=== PATIENT | male | born 1940 | race Caucasian/White ===

== ENCOUNTER 2019-02-28 14:43 | Inpatient (IN) | payer OTHER ==
--- NOTE | ~2019-02-28 | D ---
[facility] [place] [address] DISCHARGE SUMMARY Name: LOULOU OLIVIA Room #: 528B-B [facility] IN M.R.#: [id number] Admission: 02/28/19 ������������������ Attend Phys: Chris Hernadez DO Discharge: 03/08/19 ������������������ Date of : 38 Report #: [id number] THIS REPORT FOR: //name// CC: GORDON Hernadez Physician staff DATE OF SERVICE: 03/08/2019 DISCHARGE DIAGNOSES: Major depressive disorder, single episode, severe degree, mild neurocognitive disorder. MEDICAL COMORBIDITIES: Hypertension, hyperlipidemia, coronary artery disease, status post CABG, bioprosthetic valve replacement ____, BPH, chronic back pain. DISCHARGE DIET: Mechanical altered, ground due to his dentition. DISCHARGE MEDICATIONS: Tamsulosin 0.8 mg p.o. daily, atorvastatin 10 mg p.o. daily, [place] 3 fatty acids, isosorbide mononitrate 30 mg p.o. daily, nitroglycerin sublingual 0.4 mg p.o. as directed, diltiazem 180 mg p.o. daily for hypertension, aspirin 81 mg p.o. daily, gabapentin 200 mg p.o. at 0800, 1400 and 2200 for mood stabilization and neuropathy, escitalopram 10 mg p.o. daily for depression, mirtazapine 30 mg p.o. at bedtime augmentation for depression. Seroquel 37.5 mg p.o. at 0900, 1400 and 1900 for anxiety, MiraLax 17 grams p.o. daily for constipation, levothyroxine 25 mcg p.o. daily, multivitamin p.o. daily. Discharge him to ____ [place], [place] for medical and psychiatric care to be gotten there. I would recommend him establishing ____ [facility]. REASON FOR ADMISSION: Was reported suicidal ideation. HOSPITAL COURSE: The patient was admitted to Geriatric Psychiatry Unit. Made a few adjustments with starting him on Lexapro, 20 units of Remeron would be more of an antidepressant dose, stared him on Seroquel, Valium and then Klonopin. The patient improved. He has a lot of chronic issues related to pain, social isolation, failure to follow through with physical therapies. During hospitalization, his etqxribd-vp-udm came to visit. She is his main family support. Benefits versus detriments of moving and [facility]ulsive [facility] were discussed. He wished to remain in [facility], which is about 2 hours outside [place] and an hour and a half from [place], [place]. Labs this admission was unknown. They were done at [facility] and grossly normal. EKG was done. No acute findings. [facility] [address] [place] [address] DISCHARGE SUMMARY Name: LOULOU OLIVIA Room #: 528B-B DIS IN M.R.#: [id number] Admission: 02/28/19 ������������������ Attend Phys: Chris Hernadez DO Discharge: 03/08/19 ������������������ Date of : 38 Report #: [id number] PHYSICAL EXAMINATION AT THE TIME OF DISCHARGE: VITAL SIGNS: Temperature 36.6, pulse 56, respirations 40, BP 143/69, O2 sat 98%. MUSCULOSKELETAL: Kyphotic, ambulates with walker, slow gait. MENTAL STATUS EXAMINATION: This is a well-developed, well-nourished male, appearing stated age. Mood and affect congruent and constricted. Attention and concentration are intact. Thought process is linear and goal directed. Thought content concerned about return to nursing facility. Denied SI or HI. Denied hopelessness or helplessness. Denied homicidal intent or plan. Memory not formally tested. Insight fair. Judgment is fair to limited. Fund of knowledge is below average. High school level of education. Prognosis for this patient is guarded. ��������������������������������������������� ���������������������������������������� By: ��������������������������������������������� [id number] Chris Hernadez, DO /nt
[2019-02-28 19:30] VITALS: BP 154/73
[2019-02-28] MEDS ORDERED: DUTASTERIDE0.5 MG PO (22:40)
[2019-02-28] MEDS ORDERED: FOLIC ACID1 MG PO (22:41)
--- NOTE | 2019-03-01 02:53 | NUR ---
ASSUMED CARE @ 19:30. DRESSED ONLY IN THE HOSPITAL PANTS HE CAME IN, PT REFUSED TO PUT ON CLEAN PANTS AND SHIRT.
[2019-03-01 03:17] VITALS: BP 154/73
[2019-03-01 03:49] VITALS: BP 154/73
--- NOTE | 2019-03-01 07:30 | NUR ---
PT UP WALKING AROUND IN PRICE. COMPLAINING OF FEET PAIN. PT STATED HE HAS ARTHRITIS IN HIS BACK OF 8 ON 1-10 SCALE. PT KNOWS PERSON AND MONTH. LUNGS CLEAR. STEADY GAIT. STATED HE WOULD LIKE TO GET SOME CLOTHES ALSO.
[2019-03-01 08:00] VITALS: BP 139/66
--- NOTE | 2019-03-01 08:10 | NUR ---
PT UP THIS AM STATED HE HAS PAIN TO HIS FEET AND THAT HE NEEDS HIS SHOES. GOT SHOES FROM [facility] AND PUT SPECIAL LACES ON. PT STATED HE HAS NEUROPATHY AND FIBROMYALGIA.
[2019-03-01 09:11] VITALS: BP 139/66
--- NOTE | 2019-03-01 10:30 | NUR ---
ADM TYLENOL 325MG 2 TABS PO FOR PAIN TO BACK AND LEGS.
[2019-03-01 12:25] VITALS: BP 139/66
--- NOTE | 2019-03-01 12:50 | NUR ---
PT STATED HE HAS A HEAD COLD TO NURSE. WILL LET AWARE.
--- NOTE | 2019-03-01 15:10 | NUR ---
DR. GARZA HERE TO SEE PT. TALKED TO ABOUT HIS CHRONIC PAIN. PT WAS IN AFTERNOOD GROUP AND UP WALKING IN PRICE WITH WALKER.
--- NOTE | 2019-03-01 16:13 | NUR ---
PT ASKING IF ORDERED ANY PAIN MED AT THIS TIME. NOTHING AT THIS TIME.
--- NOTE | 2019-03-01 17:07 | NUR ---
ADM TYLENOL 325MG 2 TABS FOR PAIN TO LEGS AND LOWER BACK. PT STATED IF HE DIDN'T GET ANYTHING STRONGER HE WAS GOING TO FROM THE PAIN.
[2019-03-01 20:31] VITALS: BP 127/61
--- NOTE | 2019-03-02 02:43 | NUR ---
PT OBSERVED IN DAYROOM SITTING QUIETLY WITH PEERS UPON INITAL ASSESSMENT THIS PM-DYSPHORIC MOOD-ABRUPT RESPONSES TO INQUIRIES FROM STAFF. USING ROLLER WALKER AND GAIT IS SLOW/STEADY WITH USE OF ASSISTIVE DEVICE. RESTLESS AT TIMES GETTING UP TO PACE IN HALLWAYS AND DID TRY EXIT DOOR AND STANDS OUTSIDE DOOR OF PEERS ROOMS UNTIL REDIRECTED-CONVERSATION DURING 1;1 INTERACTION WITH NURSING FOCUSES ON PAIN-STATING HE HAS BACK PAIN RATED A 10 ON 1-10 SCALE-NORCO5/325MG GIVEN AT 2030 FOR ABOVE REPORTED-PT STATES "I USUALLY TAKE 2" WHEN ADMINISTERED. DID COMPLETE HS CARES/CHANGE INTO PAJAMAS WITH VERBAL CUING FROM STAFF-DENIES SI/HI/SH THOUGHTS. DESCRIBES MOOD "TIRED/SORE" ORIENTED TO NAME,PLACE STATING HE IS AWARE IN HOSPITAL BUT UNABLE TO STATE NAME OF HOSPITAL. TO BED AT APPROX.2200-[facility].
--- NOTE | 2019-03-02 05:10 | NUR ---
AWAKE IN HALLWAY AT 0450-WHEN APPROACHED WAS NOTED TO BE TEARFUL-C/O BACK PAIN RATED A 9 ON 1-10 SCALE. NORCO5/325MG GIVEN PO PRN FOR REPORTED PAIN- THIS NURSE WAS WALKING HIM BACK TO ROOM TO RETURN TO BED HE BEGINS TO CRY STATING "I AM JUST READY TO GO HOME-I DON'T HAVE ANYONE,I'M ALL ALONE" WHEN ASKED IF HE WAS HAVING SUICIDAL THOUGHTS SHOOK HEAD NO AND STATES "I'M AFRAID TO GO HOME"
--- NOTE | 2019-03-02 09:32 | H ---
[facility] [place] [address] HISTORY AND PHYSICAL Name: LOULOU OLIVIA Room #: 528B-B ADM IN M.R.#: [id number] Admission: 02/28/19 ������������������ Attend Phys: Chris Hernadez DO Discharge: ������������������ Date of : 38 Report #: [id number] THIS REPORT FOR: //name// CC: GORDON TITO Hernadez Physician staff DATE OF SERVICE: 03/01/2019 INPATIENT PSYCHIATRIC EVALUATION ATTENDING PHYSICIAN: Chris Hernadez. . GOLD BLOWER: Matthew Harris M.D. REASON FOR HOSPITALIZATION: Severe depression, suicidal ideation and failure to cope and thrive. HISTORY OF PRESENT ILLNESS: This is an 78-year-old male who resides at the Assisted Living Facility near [place], [place]. The patient was referred by [facility] there, which is in the [facility] system. The patient has been having suicidal thoughts, grief, hopelessness, no friends, feels like a burden, no support. committed suicide after son's . Apparently, she wanted a divorce at that time. That has been within the last decade. The patient reports he has had 4 children, 2 of which were . The patient's two living daughters are Sarah Olivia and Pily Melendez at [phone] and [phone]. I do not think this is the patient's first psychiatric hospitalization, but I do not have a great history. The patient reported that he is feeling down. ALLERGIES: HE STATES HE HAS HAD TROUBLE TOLERATING PREVIOUS ANTIDEPRESSANTS, INCLUDING PAXIL AND WELLBUTRIN. HE HAS A NUMBER OF ALLERGIES THAT ARE NOTED, INCLUDING ALPRAZOLAM; CIPROFLOXACIN; PAROXETINE; SULFA; THAT MAY BE ZANAFLEX, NOT SURE. JUST NOTICED THERE IS AN ALLERGY FOR EFFEXOR THAT IS NOT LISTED. CYMBALTA, URINARY RETENTION AND ZITHROMAX. So, I do not think the patient is a great historian. FROM THE NURSING FACILITY, THERE IS AN ALLERGY FOR CIPROFLOXACIN, CYMBALTA, EFFEXOR, PAXIL, PENICILLINS, SULFA, XANAX AND ZITHROMAX. I think because of this, I switch him to Lexapro. MEDICATIONS: In any event, medications at the shelter: Aspirin 81 mg p.o. daily; diltiazem 180 mg ER; dutasteride 0.5 mg p.o. daily, that is Avodart; folic acid 1 mg p.o. daily; gabapentin 400 mg p.o. at bedtime; isosorbide mononitrate ER 30 mg daily; levothyroxine 25 mcg daily; mirtazapine 30 mg at bedtime; [place] 3 fatty acids 500-100 mg 1 cap daily; senna-S 1 tab p.o. b.i.d.; [address] [address] HISTORY AND PHYSICAL Name: LOULOU OLIVIA ANAND Room #: 528B-B ADM IN M.R.#: [id number] Admission: 02/28/19 ������������������ Attend Phys: Chris Hernadez DO Discharge: ������������������ Date of : 38 Report #: [id number] simvastatin 20 mg p.o. at bedtime; tamsulosin 0.8 mg p.o. daily; temazepam 30 mg at bedtime and therapeutic multivitamin. He was getting clonazepam 0.5 mg t.i.d. p.r.n.; hydrocodone 10/325 p.o. q.6 hours p.r.n., max of 3 per day for unspecified pain level; magnesium hydroxide p.r.n. for constipation; nitroglycerin p.r.n. and MiraLax powder b.i.d. in 8 ounces of water. LABORATORY DATA: Laboratories from [facility], drawn on 02/28/2019, CMP: Sodium slightly low at 132, potassium 4.3, chloride 99, bicarbonate 24, anion gap 9, calcium 9.1 and glucose 101. Total protein 6.9. Albumin 4.4. Alkaline phosphatase 75, alanine 21, AST 32 and total bilirubin 0.7. BUN 15, creatinine 0.9. Estimated GFR for male is 98 as -Filipino; uus-Hfjozdy-Rtwdqueu 81. Drug screening was positive for benzodiazepines and opiates. Urinalysis negative. CBC: H and H 12.6 and 36, white count 8.05 and platelets 363,000. LEGAL HISTORY: Denied. SOCIAL HISTORY: Denied physical, sexual or emotional abuse. Reports 8th grade level of education. 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 Affidavits include the first one saying, he is anxious, despondent, has suicidal ideations, has no hope, no family support, has continued to have nightmares. Current medications not helping. The patient otherwise unwilling to seek help. Second affidavit from [facility]; the first one was by Wali Velasquez II, M.D. services. The patient presented to the ED alone. The patient was very tearful and anxious, stated "I had nowhere else to go, nowhere to get help, so I came here. I just don't want to be around anymore". The patient does not have a plan, but has a long history of depression and mental illness. He also thought while he cannot work anymore, so he has no reason to live. The patient's shot herself 10+ years ago after son . The patient repeats that he just wants help because he wants to live, but he just cannot. They felt he was a threat to his own safety. PAST MEDICAL HISTORY: Includes arthropathy; BPH, chronic low back pain with sciatica and coronary artery disease. He states 14 years ago, he had a times 4-vessel CABG and a porcine valve replacement. Degenerative joint disease; hypertension; history of inferior wall [place]; hypothyroidism; hyperlipidemia; neuropathy; osteoarthrosis involving the lower leg; prostatitis, although not currently; nicotine dependence; tremor and a history of coronary artery bypass graft x 4 with porcine valve replacement and hernia repair. FAMILY HISTORY: Father, coronary artery disease. Father, heart attack. Liver cancer in his mother. Prostate cancer and colon cancer in a brother. HABITS: He has half-pack per day 60-year-old smoker. [address] [address] HISTORY AND PHYSICAL Name: LOULOU OLIVIA Room #: 528B-B [facility] IN ..#: [id number] Admission: 02/28/19 ������������������ Attend Phys: Chris Hernadez DO Discharge: ������������������ Date of : 38 Report #: [id number] REVIEW OF SYSTEMS FROM THE EMERGENCY ROOM: CONSTITUTIONAL: Negative for activity change, appetite change, chills or fever. HEENT: Negative for congestion or sore throat. RESPIRATORY: Negative for cough or shortness of breath. CARDIOVASCULAR: Negative for chest pain, leg swelling. GASTROINTESTINAL: Negative for abdominal pain, diarrhea, nausea or vomiting. GENITOURINARY: Negative for dysuria. MUSCULOSKELETAL: Negative for neck pain or neck stiffness. SKIN: Negative. PSYCHIATRIC: Positive for dysphoric mood and suicidal ideas. Negative for confusion and hallucinations. The patient is anxious. PHYSICAL EXAMINATION: VITAL SIGNS: Weight 81.6 kilos in the ER. BMI 28.19. Vital signs today as follows: Temperature 36.2, pulse 79, respirations 16, BP 139/66 and O2 sat 93%. MUSCULOSKELETAL EXAMINATION: He has a cautious kyphotic gait. MENTAL STATUS EXAMINATION: This is a well-developed, disheveled male, appearing older than stated age. Attention fair. Concentration fair. Speech is normal rate, volume and tone. Thought process linear, generally goal directed. Thought content, relative poverty of thought. No psychomotor agitation. No psychomotor retardation. Denied auditory, visual or tactile hallucinations. Suicidal ideations have been not active and does not have means currently. Obviously, he is in the hospital. Memory not formally tested, though he had deficits only, day of the week and date. FORMULATION: An 78-year-old male, being transferred from the [facility] due to depression fairly diffusely. PLAN: Evaluate, stabilize. Perform a cognitive screen. In light of his allergy list, I think I will switch him from Effexor to Lexapro. I will consider other medications as indicated. ESTIMATED LENGTH OF STAY: 10-14 days. STRENGTHS: He has some insurance. WEAKNESSES: Numerous symptoms of provocative suicidal risk factors. ��������������������������������������������� <ELECTRONICALLY SIGNED> ���������������������������������������� By: Chris Hernadez DO ��������������������������������������������� 03/02/19 0932 1239 [id number] Chris Hernadez DO /nt
--- NOTE | 2019-03-02 12:23 | NUR ---
ASSUMED CARE AT 0715 TODAY. PT. UP ON THE UNIT. CONTINUES TO VERBALIZE DEPRESSION AND HOPELESSNESS EVIDENCED BY HIS STATEMENTS: i JUST DONT FEEL LIKE THIS IS RIGHT. WHAT CAN I DO. I JUST DON'T THINK ANYONE CAN HELP ME ANYMORE. AFFECT FLAT, DEPRESSED FACIAL EXPRESSIONS. HAS ATE MEALS ON THE UNIT AND ATTENDED GROUPS. DRESSES WELL AND WANTS TO SHAVE TODAY TIME ALLOWS. DRESSED NEATLY. STATES BOWELS MOVED YESTERDAY.
[2019-03-02 12:28] VITALS: BP 128/65
[2019-03-02 21:13] VITALS: BP 129/60
--- NOTE | 2019-03-03 03:09 | NUR ---
ASSUMED CARE @ 19:15. AMBULATING FROM DAY ROOM TO BEDROOM. DRESSED IN JEANS AND WESTERN SHIRT. DENIES SI AND HI. SAYS FEELS WORN OUT. STATES, "IM NOT MAD AT NOBODY TODAY." STATES THAT IS EXPERIENCING SADNESS. C/O OF NOT BEING ABLE TO EAT MUCH AT LUNCH AND DINNER, DUE TO NO TEETH, AND NEEDING SOFT FOOD. A&OX3 HRRR, LUNGS DIMINISHED, ABDOMEN SOUNDS NORMOACTIVE. STATES THAT HERNEA ABOVE UMBILLICUS IS PAINFUL. [place] PROVIDED @ 0100 FOR BACK PAIN OF 6/10. WASHING CLOTHING SO HE CAN WEAR IT CLEAN TOMORROW. WILL CONTINUE TO MONITOR.
[2019-03-03 04:41] VITALS: BP 129/60
[2019-03-03 07:50] VITALS: BP 126/56
--- NOTE | 2019-03-03 11:04 | NUR ---
ASSUMED PATIENT CARE AT 0730. PATIENT ATE SMALL ABOUNT OF BREAKFAST, R/T NO TEETH. NURSE WILL GET A DIET CHANGE ORDER FROM N.P. PROCUREMENT ACCOUNTANT THIS WEEKEND. PATIENT VERY GROUCHY, C/O ABOUT EVERYTHING TO DO WITH BEHAVIORAL HEALTH. FIRST STATED TO THIS NURSE AT MEDICATION PASS THAT SOME OF HIS MEDS GET STUCK IN HIS THROAT. NORSE OFFERED TO PUT MEDS IN APPLESAUCE; PATIENT SAID O.K. THEN C/O ABOUT MEDS BEING IN APPLESAUCE. DOES NOT MEDS CRUSHED OR IN APPLESAUCE. DID TAKE ALL MEDS EVENTUALLY. CONTINUE TO MEDICATION.
--- NOTE | 2019-03-03 15:11 | NUR ---
DR. GARZA ASSESSED PATIENT ABOUT 1200 NOON. NURSE REPORTED TO THAT PATIENT HAS AN EXTREME AMOUNT OF PAIN R/T BACK FRACTURES (THREE TOTAL, PER REPORT FROM NIGHTS). PATIENT HAS ONLY NORCO 5 MG PO FOR BREAKTHROUGH PAIN. [place] [address] GARZA STATED THAT HE WILL ASSESS MEDICATIONS TO DETERMINE IF ANYTHING FURTHER COULD BE DONE TO ASSIST PATIENT WITH PAIN RELIEF.
--- NOTE | 2019-03-03 18:22 | EKG ---
[facility] [employer] [place] [address] ELECTROCARDIOGRAM REPORT Name: NELOULOU Room #: 528B-B ADM IN M.R.#: [id number] ������������������ Admission: 02/28/19 ������������������ Attend Phys: Chris Hernadez DO Discharge: ������������������ Date of : 38 Report #: [id number] ����������������������������������������������������������������� [id number] THIS REPORT FOR: //name// [facility] Test Date: 2019-03-01 Test Time: 14:10:10 Pat Name: LOULOU OLIVIA Department: Room: 528B B Gender: M Inside Sales Advertising Executive: Geovanny RAMÍREZ : 1940 Requested By: Chris Hernadez Order Number: [id number] MD: Sam Cardenas Measurements Intervals [place] Rate: 59 P: 0 NE: 184 QRS: -4 QRSD: 80 T: 67 QT: 396 QTc: 393 Interpretive Statements Sinus rhythm Low voltage in leads early transition Nonspecific ST-T wave abnormalities No previous ECG available for comparison Electronically Signed On 03-03-2019 18:22:28 CDT by Sam Cardenas [email or web address] ��������������������������������������������� <ELECTRONICALLY SIGNED> ���������������������������������������� By: Sam Cardenas MD ��������������������������������������������� 03/03/19 1822 1410 1410 Sam Cardenas MD /EPI
[2019-03-03 19:43] VITALS: BP 116/54
--- NOTE | 2019-03-03 23:05 | NUR ---
ASSUMED CARE @ 19:15. AMBULATING WITH WALKER IN THE HALLWAYS BETWEEN HIS ROOM AND THE DAY ROOM. A&O X3. CAN NOT IDENTIFY THE DATE. CONCERNED THAT IS NOT PRESCRIBED CLONAZEPAN. REPORTS IS TIRED FROM NOT SLEEPING WELL AT NIGHT. HRRR, S1S2 NOTED. LUNGS CTA ON INSPIRATION, DISADVANTAGOUS SOUNDS AUSCULTATED ON EXPIRATION. ABD SOUNDS NORMOACTIVE, REPORTS NO BM TODAY. LAST BM TUESDAY. GIVEN PRN MOM. PRN NORCO 5/325 X2 TABS PROVIDED FOR BACK PAIN @ 20:55. REPORTS THAT HE DOESNT WANT TO LIVE ALONE WHEN HE LEAVES THE HOSPITAL. DISCHARGE PROCEDURES EXPLAINED, THAT HE WILL HAVE INPUT INTO WHERE HE LIVES WHEN HE LEAVES HOSPITAL. EXPRESSED RELIEF BUT LACK OF CONFIDENCE IN THE PROCESS. WILL CONTINUE TO MONITOR. JESSI PROVIDED IN ROOM FOR CALL LIGHT.
--- NOTE | 2019-03-03 23:59 | NUR ---
PT AWAKENED AND REQUESTED BED BE REPOSITIONED. THIS WAS DONE AND PT REQUESTED ANTI ANXIETY MEDS. SEROQUEL 25 PROVIDED @ 23:50 WITH PUDDING AND WATER. SWOLLOWED WITHOUT THE PILL GETTING STUCK IN HIS THROAT. WILL CONTINUE TO MONITOR.
[2019-03-04 01:05] VITALS: BP 116/54
--- NOTE | 2019-03-04 05:05 | NUR ---
PT OUT OF BED @ 03:45, C/O ROOM TOO HOT, AND DAY ROOM TOO HOT. THERMOSTAT IN ROOM SET FOR 68 o F. VS @04:00 126/67 94 20 96.8F 93%. PT WALKING THE HALLS, SAYS THAT HE FOUND A COOL PLACE IN THE HALLWAY, AT HIS REQUEST, SET A CHAIR IN THE HALLWAY FOR HIM IN THE COOL SPOT. OFFERED NORCO, WHICH HE REFUSED. WILL CONTINUE TO MONITOR.
[2019-03-04 11:02] VITALS: BP 157/76
[2019-03-04 11:44] VITALS: BP 157/76
--- NOTE | 2019-03-04 12:44 | NUR ---
ASSUMED CARE AT 0715. PT. AWAKE, AMBULATING IN THE PRICE WITH WALKER. HE IS TALKING IN A FRANCES VOICE, STATING I THINK I'M GOING TO , I JUST DON'T THINK I CAN DO THIS WORK ANY LONGER. I HAVEN'T SLEPT IN 3 NIGHTS. I CAN'T EAT BREAKFAST. I DON'T EVEN WANT THE COFFEE. I NEED TO SLEEP, BUT I HAVE NIGHTMARES. PT. WENT BACK TO BED BUT GOT UP IN LESS THAN AN HOUR C/O NIGHTMARES BUT IS NONSPECIFIC ABOUT THE NIGHTMARES. HE TOOK HIS MEDICATIONS WITHOUT PROBLEMS NOTED. HE DID NOT EAT BREAKFAST OR MORNING SNACK. HAS BEEN UP AND DOWN AND UP AND DOWN (INTO BED) ALL MORNING, BUT NOT SLEEPING. HE AT 1/4 LUNCH AND REFUSED TO TRY MORE WHEN STAFF ENCOURAGED HIM TO TRY. HE ASKED SEVERAL TIMES ABOUT WHAT STAFF WOULD DO IF SOMEONE GOT SICK. HE WAS INFORMED IF HE WAS SICK ENOUGH, STAFF WOULD TRANSFER HIM TO A MEDICAL FLOOR. HE STATED HE THINKS HE NEEDS AN IV BECAUSE HE IS NOT EATING OR DRINKING WELL. THIS RN ENCOURAGED HIM TO TRY TO HYDRATE HIMSELF AND DRINK MORE FLUIDS AND TO EAT MORE PER HIS OWN WILL AND THAT NO ONE WANTED TO PUT IV'S IN ANYONE UNLESS VERY NEEDED. HIS CLOTHES WERE IN THE DRYER AND TAKEN TO HIM, WHICH HE PUT ON. HE WAS OFFERED A SHOWER, BUT REFUSED TO DO SO.
--- NOTE | 2019-03-04 16:31 | NUR ---
Sw was able to meet with Pt. Pt was alert and engaged. Pt denied SI/HI. Pt denied AH/VH. When asked about SI as the reason he was admitted, Pt started to talk about lower back pain and stated " I get scared sometimes". Pt stated he does not talk to his children at time. Pt stated he only has support from his former daughter -n- law, Sarah. Pt stated he visits with Sarah and his 13 year old grandaughterShila, at least 1 per week or more sometimes. Pt stated that Sarah was his DPOA. Pt stated his of 30 years completed sucided after they . Pt stated his son Freddie contracted [place] fever from a tick bite and at 51 years old. Pt stated that he has nightmares about his son's often. Pt stated, " I need help with these nightmares and stuff". Pt reported having nightmares for 7 to 8 years. Pt stated the nightmares started when his son . Pt reports being dx with fibromyalgia. Pt reported smoking a half a pack of cigarettes per day. Pt did not have any concerns or question for the SW at this time.
[2019-03-04 19:25] VITALS: BP 143/67
[2019-03-04 21:57] VITALS: BP 143/67
--- NOTE | 2019-03-05 04:34 | NUR ---
PT MORE ANIMATED THIS EVENING. CONTINUES TO COMPLAIN THAT ROOM IS "TOO HOT". MOVED PT FROM BED BY THE WINDOW, TO THE BED BY THE ROOM DOOR. MORE COMFORTABLE FOR HIM TEMP CHONG. THIS MUST HAVE WORKED PT WAS ONLY UP TO BR X1 THIS AM AND SLEPT THROUGH THE NIGHT, WITH A BLANKET OVER HIM MUCH OF THE TIME.
[2019-03-05 14:25] VITALS: BP 134/58
--- NOTE | 2019-03-05 16:28 | NUR ---
ASSUMED PATIENT CARE AT 0700. PATIENT AMBULATORY, WALKING ABOUT UNIT. COMPLIANT WITH ALL MEDICATIONS, ATE 100% OF MEALS. FLAT AFFECT, LABILE MOOD, NO BEHAVIORS. CONTINUE TO MONITOR.
[2019-03-05 20:19] VITALS: BP 123/56
--- NOTE | 2019-03-06 01:04 | NUR ---
UPON INITITAL ASSESSMENT THIS SHIFT WAS NOTED TO BE WITHDRAWN TO ROOM AND TO BED-DID COME OUT WITH PROMPTING TO TAKE SNACK WITH PEERS BUT LIMITED INTERACTION WITH OTHERS NOTED. ANXIOUS FACIAL EXPRESSION WHILE INTERACTING WITH NURSING STAFF-SOMATICALLY FOCUSED AND STATES ONLY CONCERN IS WITH GETTING MEDICATION RIGHT TO MAKE HIM FEEL BETTER-IS NOT RECEPTIVE TO COMMENT FROM STAFF INDICATING THAT MEDS COULD BE VERY HELPFUL IN TX OF MOOD/ANXIETY BUT ALSO NEEDED TO LEARN NON-MED COPING SKILLS/RELAXATION TECHNIQUES ETC TO WHICH HE STATES "THAT DOESN'T WORK FOR ME" NORCO 5/325 2 TABS PO PRN AT 2200 FOR C/O BACK PAIN RATED AN 8 ON 1-10 SCALE.
[2019-03-06 14:30] VITALS: BP 133/64
--- NOTE | 2019-03-06 17:48 | NUR ---
AAOX3. PLEASANT BUT GRUPMY AND VERY UNHAPPY ABOUT NO BM. PROVIDED MILK OF MAG. PACING IN HALLS AND ROOM. REFUSED 1400 SEROQUEL AND REFUSES NORCO AND COMPLAINS OF HEADACHE. REFUSED DINNER. ATE GOOD FOR BREAKFAST AND LUNCH AND ATTENDED GROUPS WITH GOOD PARTICIPATION.
[2019-03-06 20:38] VITALS: BP 169/81
--- NOTE | 2019-03-07 00:23 | NUR ---
Fretful and ruminative this pm-upon inital assessment sitting in room in dark states "i've been sick all day" Reporting constipation earlier in day and reportadly took laxative with good results but is ruminating about loose stool that he has had since that time and convinced that he is going to be incontinent of stool during night. provided with bedside commode,incontinent pads for bed and brief,but remains fretful despite support,reassurance from staff. [place] 5/325 given po prn at 2100 along with scheduled hs meds for reports of hands and feet burning along with low back pain rated a 8 on 1-10 scale. remains awake at desk frequently at 0030-requesting additional medication for his nerves-offered seroquel 25mg several times but states he doesn't like that medication initally stating it made him too sleepy then reporting it gave him a headache-"the dr said that is what what causing my headache" Did take seroquel po prn for anxiety at approx. 0036.
--- NOTE | 2019-03-07 05:15 | NUR ---
HAS been awake most of night-multiple somatic complaints ranging from gas,to feeling cold but sweaty,dry mouth,burning hands and feet,sore in nose and short time later nose bleed,feeling like he is going to have diarrhea again,skin feeling "tight" and skin feeling "different" at approx 0445 norco 5/325mg 2 tabs given po prn for feet and hands burning pain rated a 9 on 1/10 scale-did sit attempt 4 square relaxation breathing with direction,support,multiple repeated verbal ques from nursing staff-reports minimal relief of anxiety symptoms stating "see that doesn't really help me" bp taken and is 139/78 p-88
[2019-03-07 08:00] VITALS: BP 143/53
--- NOTE | 2019-03-07 18:48 | NUR ---
ASSUMED CARE AT 0715 THIS MORNING. PT. UP FOR MEALS AND GROUPS. CONTINUES TO APPEAR DEPRESSED, UNABLE TO COME UP WITH ANY ANSWERS ON HIS OWN. HE CONTINUES TO SAY I AM NOT SURE WHAT TO DO. HE C/O NOT SLEEPING BUT DOES NOT ATTEMPT TO REST WHEN HE CAN. HE AMBULATES IN THE PRICE OFTEN. WAS GIVEN A SHOWER TODAY. HE HAD NO CLEAN UNDERWARE. HIS CLOTHES WERE WASHED. HE WAS COOPERATIVE WITH MEDS, GROUPS AND MEALS.
[2019-03-07 19:29] VITALS: BP 171/80
--- NOTE | 2019-03-07 20:11 | NUR ---
ASSUMED CARE @ 19:15. IN ROOM SITTING ON THE BED IN HIS ROOM. DENIES PAIN, DENIES SI AND HI. A&OX3 NOT ORIENTED TO TIME. HRRR, LUNGS CTA, ABD N X4Q. WILL CONTINUE TO MONITOR.
[2019-03-07 22:12] VITALS: BP 171/80
--- NOTE | 2019-03-08 05:20 | NUR ---
SLEPT ALL NIGHT IN BED, FOR A TOTAL OF 8 HOURS OF SLEEP.
[2019-03-08] MEDS ORDERED: FLOMAX0.4 MG PO (10:05)
[2019-03-08] MEDS ORDERED: IMDUR 30 MG TAB30 M1 PO (10:13)
[2019-03-08] MEDS ORDERED: LIPITOR10 MG PO (10:13)
[2019-03-08] MEDS ORDERED: FISH OIL 1,0001 EAC5 PO (10:13)
[2019-03-08] MEDS ORDERED: CARDIZEM CD 18180 M3 PO (10:14)
[2019-03-08] MEDS ORDERED: NITROGLYCERIN0.4 MG SUBLING (10:15)
[2019-03-08] MEDS ORDERED: ASPIR 8181 MG PO (10:15)
[2019-03-08] MEDS ORDERED: GABAPENTIN 100100 MG PO (10:16)
[2019-03-08] MEDS ORDERED: LEXAPRO 10 MG T10 M1 PO (10:17)
[2019-03-08] MEDS ORDERED: SEROQUEL 25 MG25 M1 PO (10:17)
[2019-03-08] MEDS ORDERED: REMERON 30 MG T30 M1 PO (10:17)
[2019-03-08] MEDS ORDERED: SYNTHROID25 MC1 PO (10:18)
[2019-03-08] MEDS ORDERED: THERA-M CAPLET1 EACH PO (10:18)
[2019-03-08] MEDS ORDERED: MIRALAX17 GM PO (10:18)
--- NOTE | 2019-03-08 10:21 | NUR ---
ASSUMED PATIENT CARE AT 0700. PATIENT UP AND ABOUT THE UNIT. ATE 100% OF BREAKFAST, VITAL SIGNS STABLE. STABLE MOOD, NO BEHAVIORS, AFFECT BLUNTED. DISCHARGED PLANNED FOR 1PM TODAY. CONTINUE TO MONITOR.
[2019-03-08 10:43] VITALS: BP 143/69
--- NOTE | 2019-03-08 12:21 | NUR ---
DISCHARGE REPORT GIVEN TO MARY NURSE AT [facility]/T HARVEY'S DISCHARGE. PRESCRIPTIONS AND PAPER WORK BEING SENT WITH [id number], WHO IS PICKING HIM UP AT 0100 THIS DATE. PATIENT'S BELONGINGS SENT WITH PATIENT.
--- NOTE | 2019-03-08 12:45 | NUR ---
Patient Name: LOULOU OLIVIA Admission Date: 02/28/19 DISCHARGE PLAN: Pt will be discharge to [facility] in [place], [place]. Care Assessment: Pt was assessed by Dr. Hernadez. Pt was diagnosed with Major Depression Disorder. Level II Assessment: None Transportation: Pt was transported by his daughter Sarah. Special Instructions/Notes: Pt will in independent living facility. Dr. Hernadez stated that pt will need to continue seen a psychiatrist due to his depression. DISCHARGE TO FACILITY: [facility] Facility: [facility] Fax: Address: [address] [place] [phone] Contact Name: Admission Coordinator PCP: SANDRA Psychiatrist: [facility] on March 21, 2019 at 8:00am.
--- NOTE | 2019-03-08 13:25 | NUR ---
PATIENT DISCHARGED AT 1300, ACCOMPANIED BY HER [id number]-DL-EDU AND STRINGED INSTRUMENT ASSEMBLERWILLIAM TO [facility].
== END 2019-03-08 13:20 | DRG 885 ==
LOC: SBH
PROVIDERS: ADMIT Psychiatry & Neurology Psychiatry
DX: F32.2 Major depressive disorder, single episode, severe without psychotic features (principal); R45.851 Suicidal ideations; G31.84 Mild cognitive impairment of uncertain or unknown etiology; N40.0 Benign prostatic hyperplasia without lower urinary tract symptoms; G89.29 Other chronic pain; M54.5 Low back pain; I25.10 Atherosclerotic heart disease of native coronary artery without angina pectoris; M19.90 Unspecified osteoarthritis, unspecified site; I10 Essential (primary) hypertension; E03.9 Hypothyroidism, unspecified; E78.5 Hyperlipidemia, unspecified; F41.9 Anxiety disorder, unspecified; G62.9 Polyneuropathy, unspecified; F32.9 Major depressive disorder, single episode, unspecified; Z88.1 Allergy status to other antibiotic agents; Z88.8 Allergy status to other drugs, medicaments and biological substances; Z95.1 Presence of aortocoronary bypass graft; I25.2 Old myocardial infarction; Z82.49 Family history of ischemic heart disease and other diseases of the circulatory system; Z80.8 Family history of malignant neoplasm of other organs or systems; Z80.42 Family history of malignant neoplasm of prostate; Z80.0 Family history of malignant neoplasm of digestive organs; Z95.2 Presence of prosthetic heart valve
CPT/HCPCS: 10880

== ENCOUNTER 2020-09-19 20:38 | Emergency (ER) | payer OTHER ==
[~2020-09-19] VITALS: Ht 185.4 cm; Wt 64.4 kg
--- NOTE | ~2020-09-19 | EMS ---
[address] [address] EMS Patient Care Report Name: LOULOU OLIVIA Room #: REG PEREZ Estrada#: [id number] Admission: 09/19/20 Attend Phys: Discharge: Date of : 36 Report #: [id number] THIS REPORT FOR: //name// Report Transmitted: 09/19/2020 21:20 EMS Care Summary [facility] Incident [id number] @ 09/19/2020 19:12 Incident Location [address] [place] ICU BED 134 Patient LOULOU OLIVIA Male, 80 Years 1940 Patient Address [address] [place] [id number] Patient History Behavioral/Psychiatric Disorder,Hyperlipidemia,Arthritis,Depression,Hypothyroidism, Patient Allergies Penicillin allergy,Dye allergy,Other drug allergy,Cipro, Patient Medications Klonopin, Claritin, [place], Synthroid, Avodart, Cardizem, Ativan, Zyprexa, Flomax, Haldol, Inderal, Celebrex, Restoril, Seroquel, Protonix, Chief Complaint COMBATIVE Disposition Transported No Lights/[place] Reason Psychiatric Problem/Abnormal Behavior/Suicide Attempt Transported To [facility] Narrative EMS WAS CALLED TO TRANSFER A PT TO [facility], [facility], FOR PSYCHIATRIC SERVICES NOT AVAILABLE AT [facility].. [facility] [address] [place] [address] EMS Patient Care Report Name: LOULOU OLIVIA Room #: REG [facility]#: [id number] Admission: 09/19/20 Attend Phys: Discharge: Date of : 38 Report #: [id number] [address] [facility] ICU BD 134. [place] AT EMS ARRIVAL PT WAS SLEEPING IN HIS ICU BED, STAFF PRESENT. STAFF STATE PT CAME FROM A INTERMEDIATE AFTER GETTING VIOLENT WITH STAFF AND MAYBE RESIDENTS ON THE . HE HAS BEEN AT [facility] FOR 2 DAYS AND WAS SENT TO THE ICU SO HE WOULD HAVE SOMEONE SEEING HIM AND ATTENDING TO HIM NEEDED AROUND THE CLOCK. HE HAS HAD PERIODS OF AGITATION WITH STAFF BUT THE STAFF HAS HAD ORDERS TO GIVE PT MEDS TO HELP HIM REMAIN MORE CALM. ALERT BUT VERY CONFUSED. HE SPEAKS BUT IT IS NOT POSSIBLE TO HEAR HIS MUTTERING. EYES SENDY, SKIN W.P.D., GOOD PULSES MOVEMENT SENSATION CAP REFILL ALL EXTREMITIES, AMBULATORY BUT HE IS NOT ALLOWED TO GET UP BECAUSE HE HAS KICKED OPEN THE E.R. DOORS BEFORE AND PICKED UP A CHAIR TO THROW IT. HE IS CALM AT EMS ARRIVAL AND MADE THE TRIP WITHOUT INCIDENT. RX: VITALS. PT WS SHEET LIFTED TO EMS COT, EMS X 2, STAFF X 1. BODY BELTS AND SHOULDER BELTS IN PLACE. BLANKET LIFTED TO HOSP BED, EMS X 2, STAFF X . JONN DENNY EMTP. [id number]. Initial Vitals @19:40P: 80,R: 16,BP: 139/81,Pain: 0/10,GCS: 14,SpO2: 96,Revised Trauma: 12, @19:56P: 82,R: 16,BP: 159/70,Pain: 0/10,GCS: 14,SpO2: 96,Revised Trauma: 12, @20:11P: 67,R: 16,BP: 141/53,Pain: 0/10,GCS: 14,SpO2: 95,Revised Trauma: 12, @20:35P: 83,R: 16,BP: 155/80,Pain: 0/10,GCS: 14,SpO2: 95,Revised Trauma: 12, Assessments @19:23MENTAL:Confused,SKIN:No Abnormalities,HEENT:Head/Face: No Abnormalities,Eyes: No Abnormalities,Neck/Airway: No Abnormalities,LUNG SOUNDS:General: No Abnormalities,Left Upper: No Abnormalities,Right Upper: No Abnormalities,Left Lower: No Abnormalities,Right Lower: No Abnormalities,ABDOMEN:General: No Abnormalities,Left Upper: No Abnormalities,Right Upper: No Abnormalities,Left Lower: No Abnormalities,Right Lower: No Abnormalities,PELVIS//GI:No Abnormalities,EXTREMITIES:Left Arm: No Abnormalities,Right Arm: No Abnormalities,Left Leg: No Abnormalities,Right Leg: No Abnormalities,PULSE:NEURO:No Abnormalities, Impression Behavioral/psychiatric episode Procedures @19:23ALS AssessmentResponse: UnchangedSucceeded Timeline 19:10,Psap Call [address] [address] EMS Patient Care Report Name: LOULOU OLIVIA Room #: REG PEREZ Estrada#: [id number] Admission: 09/19/20 Attend Phys: Discharge: Date of : 36 Report #: [id number] 19:12,Call Received 19:12,Dispatched 19:19,En Route 19:22,On Scene 19:23,At Patient 19:23,ALS Assessment,Response: UnchangedSucceeded, 19:38,Depart Scene 19:40,BP: 139/81 M,PULSE: 80,RR: 16 R,SPO2: 96 Ox,ETCO2: ,BG: ,PAIN: 0,GCS: 14, 19:56,BP: 159/70 M,PULSE: 82,RR: 16 R,SPO2: 96 Ox,ETCO2: ,BG: ,PAIN: 0,GCS: 14, 20:11,BP: 141/53 M,PULSE: 67,RR: 16 R,SPO2: 95 Ox,ETCO2: ,BG: ,PAIN: 0,GCS: 14, 20:35,At Destination 20:35,BP: 155/80 M,PULSE: 83,RR: 16 R,SPO2: 95 Ox,ETCO2: ,BG: ,PAIN: 0,GCS: 14, 20:40,Transfer Patient 20:50,Call Closed Disclaimer v1.1 Copyright 2020 [employer] This EMS Care Summary contains data elements from the applicable legal record (which may be displayed differently). It is designed to provide pertinent information for the following purposes: continuity of care, clinical quality, and state data reporting. The complete legal record is available to ED staff and administrators of the receiving hospital in ES's Patient Tracker. All data is provided "as is."
[~2020-09-19 20:38] MED LIST: ASPIR 8181 MG PO; CARDIZEM CD 18180 M3 PO; DUTASTERIDE0.5 MG PO; FISH OIL 1,0001 EAC5 PO; FLOMAX0.4 MG PO; FOLIC ACID1 MG PO; GABAPENTIN 100100 MG PO; IMDUR 30 MG TAB30 M1 PO; LEXAPRO 10 MG T10 M1 PO; LIPITOR10 MG PO; MIRALAX17 GM PO; NITROGLYCERIN0.4 MG SUBLING; REMERON 30 MG T30 M1 PO; SEROQUEL 25 MG25 M1 PO; SYNTHROID25 MC1 PO; THERA-M CAPLET1 EACH PO
[2020-09-19] MEDS ORDERED: SERTRALINE HCL100 MG PO (20:54)
[2020-09-19] MEDS ORDERED: SENNA PLUS TAB1 EACH PO (20:54)
[2020-09-19] MEDS ORDERED: CARDIZEM SR 60M60 MG PO (20:56)
[2020-09-19] MEDS ORDERED: CLONAZEPAM 0.50.5 M1 PO (20:57)
[2020-09-19] MEDS ORDERED: NORCO 10-325 T1 EACH PO (20:58)
[2020-09-19] MEDS ORDERED: LOPERAMIDE2 MG PO (20:58)
[2020-09-19] MEDS ORDERED: RESTORIL30 MG PO (20:59)
[2020-09-19] MEDS ORDERED: AVODART0.5 MG PO (21:00)
[2020-09-19] MEDS ORDERED: CLARITIN10 MG PO (21:01)
[2020-09-19] MEDS ORDERED: CELEBREX 200 M200 M1 PO (21:01)
[2020-09-19] MEDS ORDERED: FOLIC ACID1 MG PO (21:01)
[2020-09-19] MEDS ORDERED: GABAPENTIN600 M1 PO (21:02)
[2020-09-19] MEDS ORDERED: LEVO-T100 MCG PO (21:02)
[2020-09-19] MEDS ORDERED: PROTONIX40 M4 PO (21:03)
[2020-09-19] MEDS ORDERED: PROPRANOLOL 20M20 MG PO (21:03)
[2020-09-20 01:56] VITALS: BP 103/79
[2020-09-20] MEDS ORDERED: FLOMAX0.4 MG PO (07:00)
== END 2020-09-20 03:53 | disposition short-term general hospital (02) ==
LOC: ER 20:38
DX: R45.6 Violent behavior (principal); R41.82 Altered mental status, unspecified; I25.2 Old myocardial infarction; I10 Essential (primary) hypertension; G62.9 Polyneuropathy, unspecified; F32.9 Major depressive disorder, single episode, unspecified; Z20.828 Contact with and (suspected) exposure to other viral communicable diseases; Z79.82 Long term (current) use of aspirin; Z79.899 Other long term (current) drug therapy; Z88.8 Allergy status to other drugs, medicaments and biological substances; Z88.1 Allergy status to other antibiotic agents; Z88.0 Allergy status to penicillin; Z88.2 Allergy status to sulfonamides

== ENCOUNTER 2020-09-20 03:55 | Inpatient (IN) | payer OTHER ==
[~2020-09-20] VITALS: Ht 172.7 cm; Wt 62.7 kg
[~2020-09-20 03:55] MED LIST changes: +AVODART0.5 MG PO; +CARDIZEM SR 60M60 MG PO; +CELEBREX 200 M200 M1 PO; +CLARITIN10 MG PO; +CLONAZEPAM 0.50.5 M1 PO; +GABAPENTIN600 M1 PO; +LEVO-T100 MCG PO; +LOPERAMIDE2 MG PO; +NORCO 10-325 T1 EACH PO; +PROPRANOLOL 20M20 MG PO; +PROTONIX40 M4 PO; +RESTORIL30 MG PO; +SENNA PLUS TAB1 EACH PO; +SERTRALINE HCL100 MG PO
[2020-09-20 04:24] VITALS: BP 123/73
--- NOTE | 2020-09-20 05:01 | NUR ---
Pt arrived from ED at 0400 via gurney. Pt calm et cooperative. VSWNL. Health assessment with no abnormalities other than noted in interventions. Small scab to mid back. Pt placed on side in bed. Unable to assess SI/HI/AVH due to cognitive deficit and garbled speech pattern but pt does not demonstrate any signs or symptoms of acute emotional distress at present time. Hospitalist FUR FEEDER cement conveyor operator notified of admission. DPOA notified of admission et consent obtained for treatment. Physician cement conveyor operator notified of admission et orders obtained. Pt not ambulatory et will need a w/c. Pt incontinent per referring hospital in [place], [place]. Hospital also noted that pt prefers meds crushed. 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 Currently resting in bed with eyes closed. Will continue to monitor per unit protocol.
[2020-09-20] MEDS ORDERED: FLOMAX0.4 MG PO (07:00)
[2020-09-20 07:24] VITALS: BP 149/78
--- NOTE | 2020-09-20 12:34 | NUR ---
Assumed care of patient at 0700. Resting in bed quietly. Awoke and and was taken to the day room. Sitting up in a gerichair. Has a dried scabbed area on his midback. Covered with 2x2. Confused oriented to person. Patient states is unsure of how he got here. Helps to pivot into a chair witih the assist of two staff members. Remains on Fall precautions. More alert, is continent, notifies staff when he has to obie to the bathroom. Had a large bowel movement.Good appetite. No aggressive behavior noted.
--- NOTE | 2020-09-21 04:42 | NUR ---
Assumed care on 09/20/20 @ 19:15, seated in clementina chair. A&Ox1 to person only, cooperated with assessment, VS WNL HRRR, Lungs diminished, ABD Hyperactive BM today. Seated in clementina chair. Agitated and restless, pulling locked clementina chair towards a walker and when this was moved out of his way, to other furniture which he moves and fiddles with. Clonazepam 0.5mg P.O. provided @ 22:30. Retired to when he became sleepy. Transferred x3 assist, standing for transfer. Takes meds crushed, in applesauce, smaller pills whole in applesauce. Bed in low position, bed alarm set, will continue to monitor as per unit protocol.
[2020-09-21 04:48] VITALS: BP 118/54
--- NOTE | 2020-09-21 08:44 | NUR ---
ASSUMED CARE AT 0700 THIS MORNING. PT. UP, DRESSED AND SITTING ON THE UNIT. HE REFUSED THE 0700 MEDICATIONS. HE REFUSED HIS MORNING MEDICATIONS. HE IS VERY IRRITABLE WHEN ATTEMPTING TO TALK TO HIM. HE TOOK A BITE OF BREAKFAST AND CHEWED IT A BIT AND SPIT IT ALL OVER THE TABLE. HIS MEDS WERE CRUSHED AND PLACED IN YOGURT. HE TURNED IT UPSIDE DOWN ON THE TABLE. HE IS AGRESSIVE AND SAYS THIS IS NOT A HOSPITAL, HE IS NOT GETTING HELP HERE, AND HE WILL NOT TAKE THOSE MEDICATIONS. HE WAS NOTED TO BE EATING BREAKFAST WHEN HE THOUGHT NO ONE WAS WATCHING. WHEN HE THOUGHT SOMEONE WAS WATCHING, HE WOULD SAY, "TAKE ALL THAT STUFF!"
[2020-09-21 09:00] VITALS: BP 118/47
[2020-09-21 11:01] VITALS: BP 118/47
--- NOTE | 2020-09-21 17:02 | NUR ---
SW completed assessment and tx plan. SW team will continue to monitor.
[2020-09-21 19:38] VITALS: BP 124/59
--- NOTE | 2020-09-22 03:44 | NUR ---
Assumed care on @ 19:15, seated in clementina chair in the mileu, HRRR, lung sounds noted to be diminished, ABD sounds hyperactive, last BM noted to be on 09/20. Impulsive, and repeatedly attempts to stand from clementina chair. Reports pain in Left hip of 5/10, Tylenol 650 provided, and upon reassessment, noted to be in bed with eyes closed, respirations even and unlabored. Will continue to monitor as per unit protocol for safety and comfort.
[2020-09-22 03:50] VITALS: BP 124/59
--- NOTE | 2020-09-22 06:22 | NUR ---
8.4 hours sleep overnight.
[2020-09-22 07:28] VITALS: BP 114/49
[2020-09-22 10:26] VITALS: BP 114/49
--- NOTE | 2020-09-22 12:14 | NUR ---
LEONARDO contacted Sarah at [phone]. No answer. No vm services. LEONARDO reviewed pt's paper chart and saw that he resides at [facility]. LEONARDO contacted the one located in [facility] at [phone]. LEONARDO received an answer from a fax machine. LEONARDO then contacted the one located in [place], [place]. The staff said they will take a msg for LEONARDO and have the staff over the [place], [place] location call LEONARDO. LEONARDO team will continue to follow pt during his stay on this unit,
[2020-09-22 19:42] VITALS: BP 105/44
[2020-09-22 19:44] LABS: URINE BILIRUBIN NEGATIVE (Negative); URINE BLOOD NEGATIVE (Negative); URINE CLARITY CLEAR; URINE COLOR YELLOW; URINE GLUCOSE-RANDOM* NEGATIVE (Negative); URINE KETONES NEGATIVE (Negative); URINE LEUKOCYTES-REFLEX NEGATIVE (Negative); URINE NITRITE-REFLEX NEGATIVE (Negative); URINE PROTEIN (DIPSTICK) NEGATIVE (Negative); URINE SPECIFIC GRAVITY >= 1.030 (1.005-1.035); URINE UROBILINOGEN 0.2 E.U./dl (0.2-1.0)
--- NOTE | 2020-09-22 22:13 | NUR ---
ASSUMED PT CARE AT 1915. PT SITTING IN A VAHE CHAIR IN THE DINNING ROOM. PT IMPULSIVE AND OBSERVED ATTEMPTING TO GET OUT OF THE VAHE CHAIR MULTIPLE TIMES. PT MADE 1:1 DUE TO HIGH FALL RISK SCORE. PT DENIES PAIN AT THIS MOMENT. A&O TO SELF AND PLACE. LUNG SOUNDS DIMINISHED, CTA. HEART SOUNDS REGULAR. BOWEL SOUNDS PRESENT IN ALL QUADS. SKIN CDI. PT DENIES SI/HI. PT BECAME VERY AGRESSIVE RIGHT AFTER MED PASS. HE HIT AND SPIT AT THE NURSES PROVIDING CARE TO HIM AND USED CURSING WORDS. PT WAS WHEELED TO THE ROOM AND PUT IN BED WITH ASSISTANCE. PT IN BED WITH EYES CLOSED AT THIS TIME. WILL CTM.
--- NOTE | 2020-09-23 11:37 | NUR ---
PATIENT HAS BEEN SITTING IN VAHE CHAIR ALL MORNING. CARE ASSUMED AT 0700. PATIENT PLEASANT AND AGREEABLE. RESTLESS THOUGH AND DISMANTLED LAP KAM SEVERAL TIMES. VERY GOOD APPETITE 100 PERCENT BREAKFAST AND LUNCH. LETS STAFF KNOW WHEN NEEDING TO VOID. VERY UNSTEADY ON FEET. LOWER EXTREMITIES WEAK AND UNSTABLE WHENN STANDING. MED COMPLIANT - OFFERED WITH APPLESAUCE. NO AGITATION - VERY AGREEABLE - RESTLESS AT TIMES THOUGH. DOES NOT KNOW LIMITATIONS AND ATTEMPTS TO GET UP WITHOUT SUPERVISION. NEEDS CONSTANT MONITORING AT TIMES. WILL CONTINUE TO MONITOR AND ADDRESS ANY CONCERNS OR NEEDS THAT ARRISE.
[2020-09-23 20:33] VITALS: BP 142/69
--- NOTE | 2020-09-23 21:41 | NUR ---
ASSUMED PT CARE AT 1900. PT RESTING CALMLY IN BED WITH EYES CLOSED. PT DROWSY BUT EASILY AROUSABLE. COMPLIANT WITH HS MEDS WHEN WOKEN UP. DENIES PAIN. PT CALM AND NO AGRESSIVENESS NOTED. A&O TO PERSON, PLACE, AND SITUATION. LUNGS CTA. HEART SOUNDS RHYTHM REGULAR. BOWEL SOUNDS PRESENT X 4 QUADS. SKIN CDI. WILL CTM.
[2020-09-24 07:14] VITALS: BP 119/40
--- NOTE | 2020-09-24 11:34 | NUR ---
YELLING CONSTANTLY SINCE WAKENNG THIS AM AT APPROX. 0920-REQUIRES MAXMASSIST X 2 TO TRANSFER TO AND FROM BED TO /GERICHAIR/COMMODE. INCONTINENT OF URINE AND HAS BEEN TAKEN TO BSC Q 1 HR SO FAR THIS SHIFT BUT CONTINUES TO YELL FOR THINGS LIKE POCKETBOOK AND LIPSTICK AND IN GENERAL TO "GET UP" ANXIOUS FACIAL EXPRESSION BUT DENIES C/O PAIN. VOLTERAN GEL APPLIED PER MD ORDER.ORIENTED TO PERSON ONLY. INITALLY SPIT OUT MEDS/FOOD OFFERED AND DID RECEIVE THORAZINE IM PER ORDER FOR PO REFUSAl-after im did take approx 280 cc oj/water in addition to 1/2 OF OATMEAL AND FULL CONTAINER YOGURT WITH MUCH COAXING.
--- NOTE | 2020-09-24 12:49 | NUR ---
VISIBLE IN DAYROM SITTING QUIETLY WITH PEERS UPON INITAL APPROACH THIS AM-DENIES SI/SH/HI. ORIENTED TO PERSON NO TO DATE OR PLACE. IS NOTED TO BE RESTLESS AT TIMES ATTEMPTING TO STAND UP ON OWN DESPITE RECENT INABILITY TO AMBULATE ON OWN. GRAY QUESTIONED WHERE HE WAS TRYING TO GO STATES "I ASKETHAT ABOUT GETTING SOME MEDICINE FOR THIS PAINNI THINK ITS CALLED HYDROCODONE I'M HURTING FROM MY NECK TO MY HEELS" PROVIDED WITH SCHEDULED CELEBREX,NEURONTIN BUT REFUSES OFFERED OF PRN TYLENOL FOR PAIN STATING "THAT DON'T DO NOGHING" DID REPORT IMPROVEMENT OF PAIN BY APPROX 1300 STATING "I FEEL PRETTY GOOD RIGHT NOW " APPETITE GODD ATE 100 PERCENT OF MEALS PROVIDED-TAKES MEDS WHOLE-REQUIRES SBA X 1-2 TO TRANSFER TO/FROM BED/TOILET
[2020-09-24 19:15] VITALS: BP 124/55
--- NOTE | 2020-09-24 20:59 | NUR ---
ASSUMED PT CARE 1T 1899. PT SITTING QUIETLY IN A GERICHAIR IN THE DAY ROOM. PT DENIES PAIN. A&O TO SELF, PLACE AND SITUATION. LUNG SOUNDS CTA. HEART SOUNDS NORMAL. ABDOMEN FLAT AND SOFT WITH BOWEL SOUNDS PRESENT X4 QUADS. SKIN CLEAN DRY, AND PINK. PT DENIES IDEATIONS OF SI/HI. REQUESTS TO TAKE HS MEDS SOON SO HE CAN GO TO BED. STAFF WILL CTM.
[2020-09-25 06:33] VITALS: BP 132/49
--- NOTE | 2020-09-25 08:21 | NUR ---
0700 ASSUMED CARE OF PATIENT, PATIENT SITTING IN VAHE CHAIR IN DAYROOM. PAQTIENT ATE 75% OF BREAKFAST. MEDICATION TAKEN WHOLE WITHOUT DIFFICULTY. PATIENT REFUSES SENNA/DUCOSATE DUE TO LOOSE STOOL. LBM WAS TODAY PER PATIENT. PATIENT CALM AND COOPERATIVE. PATIENT TALKATIVE THIS AM TELLING ACCOUNTS SUPERVISOR ABOUT PAST MEMORIES. PATIENT STATES CONCERN AND GOAL TO BE TO GET CLOTHES AND A SHOWER. PATIENT VOICES FEELING BETTER AT THIS TIME, BETTER THAN WHEN HE FIRST GOT HERE. PATIENT CONTINUES TO SIT IN DAYROOM WATCHING TV.
--- NOTE | 2020-09-25 11:00 | NUR ---
LEONARDO faxed updates to [facility]. LEONARDO talked with Magaly Tay of [facility]. who said it was okay for pt to return. LEONARDO contacted Sarah who said she will be able to pick pt up at 11 am on 09/29. LEONARDO contacted Dr. Hernadez and asked that he order a COVID test to be completed Tuesday. SW team will continue to follow pt during his stay on this unit.
--- NOTE | 2020-09-25 14:09 | NUR ---
1130 PATIENT TO BATHROOM USING WALKER X1 ASSIST, VOIDED X1. PATIENT AMB TO SHOWER ROOM, ASSIST X1 DURING SHOWER. SHOWERED WITH SHOWER CHAIR, PATIENT WEAK AND NEEDS ASSISTANCE WITH BATHING. 4X4 BORDERED FOAM APPLIED TO RED OPEN AREA AFTER SHOWER. OPEN AREA IS ON MIDBACK ON BONY PROMINENCE. SCAN DRIED BROWN DRAINAGE NOTED TO DRSG ON PREVIOUS DRSG. AFTER SHOWER PATIENT TO DAYROOM FOR LUNCH & VERBALIZES "I'M GLAD TO HAVE MY JEANS ON". PATIENT ATE 100% OF LUNCH. PATIENT PRESENT IN AFTERNOON GROUP. PATIENT CONTINUES TO SIT AND WATCH TV IN VAHE CHAIR. COMMUNICATES WELL WITH OTHERS. NO C/O PAIN DENIES NEEDS.
--- NOTE | 2020-09-25 14:53 | NUR ---
VS CHECKED BP- 114/53 P- 55, PROPANOLOL SCHEDULED 1500 MED HELD DUE TO LOW PULSE. PATIENT RECLINED IN VAHE CHAIR RESTING.
[2020-09-25 19:10] VITALS: BP 118/40
--- NOTE | 2020-09-26 04:57 | NUR ---
Assumed care of pt @ 1900. Pt calm and cooperative this shift. Took medications whole without difficulty. Ambulates with assistance of walker with slightly unsteady gait. Socialized with peers in dayroom until HS. VSWNL. Health assessment with no abnormalities noted at this time. Denies SI/HI/AVH at present time. Currently resting in bed with eyes closed. Will continue to monitor per unit protocol.
[2020-09-26 06:56] LABS: ABSOLUTE NEUTROPHILS 4.3 thou/uL (1.4-8.2); BASOPHILS 1.1 % (0.0-2.0); EOSINOPHILS 4.8 % (0.0-3.0); HEMATOCRIT 39.9 % (42.0-52.0); HEMOGLOBIN 13.6 gm/dL (14.0-18.0); LYMPHOCYTES 28.6 % (24.0-44.0); MCHC 34.1 g/dL (28.0-37.0); MCV 96.7 fL (80.0-100.0); MONOCYTES 7.9 % (1.0-8.0); PLATELET COUNT 381 thou/uL (150-400); POLYS 57.6 % (36.0-66.0); RBC 4.12 mil/uL (4.50-6.00); RDW 12.2 % (10.5-14.5); WBC 7.4 thou/uL (4.0-11.0)
[2020-09-26 07:10] VITALS: BP 127/43
[2020-09-26 07:18] LABS: CALCIUM 8.7 mg/dL (8.5-10.1); CREATININE 1.2 mg/dL (0.7-1.3); POTASSIUM 4.3 mmol/L (3.5-5.1)
--- NOTE | 2020-09-26 13:46 | NUR ---
Assumed care of patient at 0700. Alert and oriented to place, person, month and year. Patient states feels better. Complaining of back pain @ (06/30). Given tylenol 650 mg PO at 0815 which was partly effective.
--- NOTE | 2020-09-26 15:04 | NUR ---
LEONARDO received a call from Magaly Tay stating that she may be unable to take pt back due to pt not being able to fully care for self. LEONARDO reminded Magaly that they agreed to take pt back upon admission once his mental health needs are met. She said she knows, but that their facility is not equipped to take care of pt's. LEONARDO explained that pt is at a better functioning level now than he was upon admission. She said that her director wants a letter stating that he needs a higher level of care. Leonardo explained that while the doctor can give a recommendation it is the nursing homes who decide what level he needs and what they can provide. She agreed. She then said pt will need to quarantine for 14 days. LEONARDO explained that is fine, but that he will have a covid test administered this weekend. LEONARDO provided an update to Rosie. The administer at [facility] told her that pt needs to go to a NH. LEONARDO explained to her her rights and gave her the information to the [facility]. SW team will continue to follow pt during his stay on this unit.
[2020-09-26 20:17] VITALS: BP 107/44
--- NOTE | 2020-09-27 02:56 | NUR ---
Assumed care of pt @ 1900. Pt calm et cooperative this shift. Took medications whole without difficulty. Ambulates with assistance of walker with slighly unsteady gait. VSWNL. Health assessment with no abnormalities noted at present time. Denies SI/HI/AVH at present time. Watched TV in dayroom until HS. Currently resting in bed with eyes closed. Will continue to monitor per unit protocol.
[2020-09-27 07:30] VITALS: BP 132/53
--- NOTE | 2020-09-27 08:39 | NUR ---
DURING WEEK ONE OF HIS ADMISSION, LOULOU HAS BE COOPERATIVE. LOULOU OBSERVED MOSTLY IN THE BEGINNING DURING GROUPS BUT SLOWLY BEGAN TO PARTICIPATE. PT PRESENTS A PLEASANT PERSONALITY AND APPEARS CALM MAJORITY OF THE TIME. IT IS RECOMMENDED BY THE RECREATION THERAPIST THAT HE WILL CONTINUE TO IMPROVE HIS COPING SKILLS TO REDUCE FUTURE STRESSORS.
[2020-09-27 09:23] VITALS: BP 132/57
--- NOTE | 2020-09-27 11:55 | NUR ---
1150 RESUMMED CARE FROM OVERNIGHT SHIFT THIS AM, PATIENT IN DAYROOM QUIET CALM. PATIENT ATE BREAKFAST TOOK MEDICATION WITHOUT INCIDENCE, PATIENT ORIENTED TIMES 3. PATIENT DENIES SI/HI/AH/VH AT PRESENT PATIENTS ABDOMEN SOFT ROUND BOWEL SOUNDS PRESENT. PATIENTS LUNGS CLEAR PATIENT IS MORE INTERACTIVE WITH STAFF. PATIENT DOES WANT TO WALK AROUND DAY ROOM WITH GAIT BELT AND WALKER. PATIENT HAS NOT DISPALYED AND BEHAVIORS, COVID TEST DONE AT 0905 THIS AM AND TAKEN TO LAB. WILL CONTINUE TO MONITOR PATIENT FOR SAFETY AND BEHAVIORS.
[2020-09-27 21:00] VITALS: BP 130/60
--- NOTE | 2020-09-28 03:23 | NUR ---
Assumed care of pt @ 1900. Pt calm et cooperative with pleasant demeanor this shift. Took medications whole without difficulty. Ambulates with assistance of walker with only slightly unsteady gait. Isolated in room most of shift. VSWNL. Health assessment with no abnormalities noted at present time. Denies SI/HI/AVH at present time. Expressed excitement that he will be leaving on Tuesday. Currently resting in bed with eyes closed. Will continue to monitor per unit protocol.
[2020-09-28 07:01] VITALS: BP 127/47
--- NOTE | 2020-09-28 09:10 | NUR ---
SW faxed pt's negative COVID results to [facility]. SW team will continue to follow pt during his stay on this unit.
--- NOTE | 2020-09-28 12:18 | NUR ---
Assumed care of patient at 0700. Alert and oriented X4. Denies SI/HI and AVH. Cooperative and behavior appripriate. Ambulating with walker. Remains on Fall precautions. Interacting with staff and peers. Continent, walks [facility] person assist. Monitored closely. Denies pain. Watching TV in the dayroom. Good appetite. Breath sounds clear,bowel sounds active. Taking whiole medications without difficulty. Participating in groups which was a one on one walking session. Pleasant. Patient states he is happy to be discharged. Euthymic.
[2020-09-28 19:06] VITALS: BP 100/50
--- NOTE | 2020-09-28 22:09 | NUR ---
Assumed care on 09/28/20 @ 19:15, seated in the day room, speaks and responds when spoken to, acknowledges that he remembers this nurse from last week. Asks to be toileted and taken to bed @ 20:30, is reluctant to use his walker. x1 stand by assist. Continent of urine. Laid down in bed with his jeans on. Cooperated with assessment, HRRR, Lungs clear to auscultation, ABD N x 4Q. VS WNL. A&Ox4, does not remember that he discharges tomorrow. Bed in low position, bed alarm set, will continue to monitor as per unit protocol for comfort and safety.
[2020-09-29] MEDS ORDERED: PROPRANOLOL 20M20 MG PO (08:17)
[2020-09-29] MEDS ORDERED: CARDIZEM SR 60M60 MG PO (08:18)
[2020-09-29] MEDS ORDERED: DEPAKOTE500 MG PO (08:19)
[2020-09-29 08:25] VITALS: BP 100/50
--- NOTE | 2020-09-29 13:39 | NUR ---
0700 ASSUMED CARE OF PATIENT, PATIENT SITTING IN DAYROOM WATCHING TV. ATE 100% OF BREAKFAST. PATIENT VOICED BEING HAPPY TO BE GOING HOME TODAY. LS CLEAR, BS ACTIVE, NO C/O PAIN. SLIGHT REDNESS TO BOTTOM NOTED, BARRIER CREAM APPLIED. MEDICATION TAKEN WHOLE WITHOUT DIFFICULTY. AMB WITH WALKER WITH STANDBY ASSIST. PATIENT IS MIN ASSIST FOR DRESSING AND TOILETING. PATIENT DRESSED IN OWN CLOTHING FOR DC. 1200 PATIENT DC VIA WC, TO SECURITY FOR BELONGING THEN TO VEHICLE. BELONGINGS IN HAND. FAMILY MEMBER (DPOA) SIGNED DC PAPERS. 1300 FACILITY CALLED AND ASSISTANT BRANCH OPERATIONS MANAGER SPOKE WITH AMAURY FOR REPORT.
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
== END 2020-09-29 12:00 | DRG 57 ==
LOC: SBH 03:55
PROVIDERS: Psychiatry & Neurology Psychiatry; ADMIT Psychiatry & Neurology Psychiatry; ATTEND Psychiatry & Neurology Psychiatry
DX: G30.9 Alzheimer's disease, unspecified (principal); F02.81 Dementia in other diseases classified elsewhere, unspecified severity, with behavioral disturbance; F01.51 Vascular dementia, unspecified severity, with behavioral disturbance; I10 Essential (primary) hypertension; E03.9 Hypothyroidism, unspecified; N40.0 Benign prostatic hyperplasia without lower urinary tract symptoms; E78.5 Hyperlipidemia, unspecified; Z88.1 Allergy status to other antibiotic agents; Z88.0 Allergy status to penicillin; Z88.2 Allergy status to sulfonamides; Z88.8 Allergy status to other drugs, medicaments and biological substances; Z79.82 Long term (current) use of aspirin; Z79.899 Other long term (current) drug therapy; Z20.828 Contact with and (suspected) exposure to other viral communicable diseases
CPT/HCPCS: 10880